=== PATIENT | female | born 1990 | race Asian ===

== ENCOUNTER 2018-08-28 08:50 | Emergency (ER) | payer OTHER ==
[2018-08-28 11:33] LABS: BILIRUBIN,URINE NEGATIVE (NEGATIVE); GLUCOSE, URINE (UA) NEGATIVE (NEGATIVE); KETONES,URINE (UA) NEGATIVE (NEGATIVE); LEUKOCYTE ESTERASE, URINE NEGATIVE (NEGATIVE); NITRITE,URINE NEGATIVE (NEGATIVE); OCCULT BLOOD,URINE SMALL (NEGATIVE); PH,URINE 5.5 PH (5.0-7.5); PROTEIN,URINE NEGATIVE (NEGATIVE); UROBILINOGEN,URINE 0.2 (NORMAL) E.U./dL (NORMAL)
[2018-08-28 11:43] LABS: CLARITY,URINE CLEAR (CLEAR)
[2018-08-28 11:44] LABS: HCG UR QUAL NEGATIVE
[2018-08-28 11:54] LABS: BACTERIA,URINE Rare /HPF (None Seen); RBC,URINE 0-5 /HPF (0-5); SQUAMOUS EPITHELIAL CELL,UR FEW Squamous (<= Few)
--- NOTE | 2018-08-28 13:32 | XRAY Report ---
Reason: cough Procedure Date: 08/28/2018 Accession Number: [id number] / [id number] Procedure: XR - Chest 2 View X-Ray CPT Code: 35541 FULL RESULT: EXAM: CHEST RADIOGRAPHY EXAM DATE: 08/28/2018 01:11 PM. CLINICAL HISTORY: Cough. COMPARISON: None. TECHNIQUE: 2 views. FINDINGS: Lungs/Pleura: Peribronchial thickening No focal opacities evident. No pleural effusion. No pneumothorax. Normal volumes. Mediastinum: Heart and mediastinal contours are unremarkable. Other: None. IMPRESSION: Peribronchial thickening may represent bronchitis RADIA
--- NOTE | 2018-08-28 13:36 | ED Physician Documentation ---
PD HPI URI - Stated complaint Stated Complaint: COUGH - Chief complaint Chief Complaint: Resp - Additional information Additional information: 27-year-old female presents the emergency department with 14 days of cough, nasal congestion and generally feeling unwell. The patient now reports rib pain with coughing. No shortness of breath. Positive for productive sputum. No peripheral edema or unilateral leg swelling.No triggering factors. No relieving factors. No other associated symptoms Review of Systems Constitutional: denies: Fever, Chills Eyes: denies: Discharge Ears: denies: Ear pain Nose: reports: Congestion Throat: denies: Sore throat Respiratory: reports: Cough. denies: Hemoptysis, Wheezing Skin: denies: Rash Musculoskeletal: denies: Neck pain Immunocompromised: denies: Chemotherapy PD PAST MEDICAL HISTORY - Past Medical History Past Medical History: No Other Past Medical History: Cough X 2 wks - afebrile - now it hurts L lat ribs when she coughs - Past Surgical History Past Surgical History: No - Present Medications Home Medications: Ambulatory Orders Medication Instructions Recorded Confirmed Benzonatate [Tessalon Perle] 100 mg PO TID PRN #30 capsule 08/28/18 Doxycycline Hyclate 100 mg PO BID #20 capsule 08/28/18 - Allergies Allergies/Adverse Reactions: Allergies Allergy/AdvReac Type Severity Reaction Status Date / Time No Known Drug Allergies Allergy Verified 08/28/18 09:08 - Social History Does the pt smoke?: No Smoking Status: Never smoker PD ED PE NORMAL - General General: Alert and oriented X 3, No acute distress - HEENT HEENT: Atraumatic, PERRL, EOMI, Ears normal - Neck Neck: Supple, no meningeal sign - Cardiac Cardiac: RRR, Strong equal pulses - Respiratory Respiratory: No respiratory distress, Clear bilaterally - Derm Derm: Normal color - Extremities Extremities: No deformity - Neuro Neuro: Alert and oriented X 3, Normal speech - Psych Psych: Normal affect Results - Vitals Vitals: Vital Signs - 24 hr 08/28/18 08/28/18 09:06 13:45 Temperature 36.6 C 37.0 C Heart Rate 73 77 Respiratory 18 18 Rate Blood Pressure 106/70 108/70 O2 Saturation 98 99 Oxygen O2 Source Room air - Labs Labs: Laboratory Tests 08/28/18 08/28/18 11:25 11:25 Urine Color YELLOW Urine Clarity CLEAR Urine pH 5.5 Ur Specific [place] <=1.005 <=1.005 Urine Protein NEGATIVE Urine Glucose (UA) NEGATIVE Urine Ketones NEGATIVE Urine Occult Blood SMALL H Urine Nitrite NEGATIVE Urine Bilirubin NEGATIVE Urine Urobilinogen 0.2 (NORMAL) Ur Leukocyte Esterase NEGATIVE Urine RBC 0-5 Urine WBC 0-3 Ur Squamous Epith Cells FEW Squamous Urine Bacteria Rare Ur Microscopic Review INDICATED Urine HCG, Qual NEGATIVE PD MEDICAL DECISION MAKING - ED course ED course: The patient's had ongoing symptoms for the past 14 days, given the duration of the symptoms she will be treated as if this is a bacterial etiology for her bronchitis. The patient appears appropriate for discharge and ongoing outpatient management. I discussed warning signs and recommended returning for any worsening or concerns. Departure - Departure Disposition: 01 Home, Self Care Clinical Impression: Bronchitis Condition: Good Instructions: ED Upper Resp Infec Abx Tx Ch Follow-Up: Anita Pollard DNP [Primary Care Provider] - Within 1 week Prescriptions: Benzonatate [Tessalon Perle] 100 mg PO TID PRN #30 capsule PRN Reason: Cough Doxycycline Hyclate 100 mg PO BID #20 capsule Comments: Please return to the emergency department for any worsening or any concerns
[2018-08-28] MEDS ORDERED: DEXAMETHASONE 10 MG/ML VIAL PO STA (13:41)
[2018-08-28] MEDS ORDERED: DOXYCYCLINE 100 MG TABLET PO STA (13:41)
[2018-08-28 13:46] VITALS: BP 108/70
== END 2018-08-28 14:00 | disposition home or self-care (01) ==
LOC: ED 08:50
DX: R05 Cough (principal); J40 Bronchitis, not specified as acute or chronic
CPT/HCPCS: 71046; 81001; 81025; 99283; A9270; 81003

== ENCOUNTER 2018-09-09 22:08 | Emergency (ER) | payer OTHER ==
--- NOTE | 2018-09-10 | ED Physician Documentation ---
PD HPI NVD - Stated complaint Stated Complaint: VOM/CONSTIPATION/DIZZY - Chief complaint Chief Complaint: Abd Pain - History obtained from History obtained from: Patient - History of Present Illness Timing - onset: Today (this morning) Timing - duration: Hours Timing - details: Gradual onset, Constant, Waxing and waning Pain level now: 6 Associated symptoms: Abdominal pain Similar symptoms before: Has not had sx before Recently seen: Not recently seen - Additonal information Additional information: last BM 1 week ago, c/o feeling constipated with increasing cramping lower abdominal pain since this morning, no BM despite urge to defecate. took 3 senna tab and used ducolax suppository without results Review of Systems Constitutional: reports: Reviewed and negative GI: reports: Abdominal Pain, Nausea, Vomiting, Constipation : denies: Dysuria, Frequency, Now EGA PD PAST MEDICAL HISTORY - Past Medical History Past Medical History: No - Past Surgical History Past Surgical History: No - Present Medications Home Medications: Ambulatory Orders Medication Instructions Recorded Confirmed Benzonatate [Tessalon Perle] 100 mg PO TID PRN #30 capsule 08/28/18 Doxycycline Hyclate 100 mg PO BID #20 capsule 08/28/18 - Allergies Allergies/Adverse Reactions: Allergies Allergy/AdvReac Type Severity Reaction Status Date / Time No Known Drug Allergies Allergy Verified 09/09/18 22:18 - Social History Does the pt smoke?: No Smoking Status: Never smoker PD ED PE NORMAL - Vitals Vital signs reviewed: Yes - General General: Alert and oriented X 3, Well developed/nourished, Other (appears uncomfortable) - Cardiac Cardiac: RRR, No murmur - Respiratory Respiratory: No respiratory distress, Clear bilaterally - Abdomen Abdomen: Normal bowel sounds, Soft, Non distended, Other (mild periumbilical tenderness) - Back Back: No CVA TTP Results - Vitals Vitals: Oxygen O2 Source Room air - Labs Labs: Laboratory Tests 09/10/18 09/10/18 04:46 04:46 WBC 24.6 H RBC 5.03 Hgb 14.2 Hct 42.7 MCV 84.8 MCH 28.2 MCHC 33.2 RDW 12.9 Plt Count 304 MPV 7.7 L Neut # (Auto) 23.1 H Lymph # (Auto) 0.5 L Cotton # (Auto) 1.0 Eos # (Auto) 0.0 Baso # (Auto) 0.1 Absolute Nucleated RBC 0.00 Nucleated RBC % 0.0 Sodium 136 Potassium 3.4 L Chloride 100 L Carbon Dioxide 24 Anion Gap 12.0 BUN 25 H Creatinine 0.7 Estimated GFR (MDRD) 99 Glucose 135 H Calcium 9.4 Total Bilirubin 1.1 H AST 36 ALT 44 Alkaline Phosphatase 69 Total Protein 8.1 Albumin 4.8 Globulin 3.3 Albumin/Globulin Ratio 1.5 Lipase 27 - Rads (name of study) abd. 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 xrays then performed and confirm large amount of stool from descending colon to rectum. given fleets enema, magnesium citrate (drank in ED), and soap-suds enema. finally, she had vary large bowel movement with resolution of symptoms Departure - Departure Disposition: 01 Home, Self Care Clinical Impression: Constipation Qualifiers: Constipation type: unspecified constipation type Qualified Code(s): K59.00 - Constipation, unspecified Condition: Good Instructions: ED Constipation Follow-Up: Anita Pollard DNP [Primary Care Provider] - Within 1 week Discharge Date/Time: 09/10/18 05:41
--- NOTE | 2018-09-10 02:18 | XRAY Report ---
Reason: abd. pain Procedure Date: 09/10/2018 Accession Number: [id number] / [id number] Procedure: XR - Abdomen Acute CPT Code: FULL RESULT: EXAM: ABDOMINAL SERIES AND PA CHEST EXAM DATE: 09/10/2018 02:06 AM. CLINICAL HISTORY: Abd. pain. COMPARISON: CHEST 2 VIEW 08/28/2018 1:05 PM. TECHNIQUE: 2 views abdomen and 1 view chest. FINDINGS: CHEST: Lungs/Pleura: No focal opacities. No effusion or pneumothorax. Mediastinum: Within exam limitations, cardiomediastinal contour is normal. ABDOMEN: Bowel Gas Pattern: There is a moderate amount of stool in the rectum, sigmoid colon and lower descending colon. There is mild to moderate gas distention of the proximal descending colon and transverse colon. The small bowel is unremarkable. Free Air: None. Other: None. IMPRESSION: 1. No infiltrates. 2. Moderately large amount of stool in the lower colon including sigmoid and rectum. RADIA
[2018-09-10] MEDS ORDERED: MINERAL OIL ENEMA 133 ML BOTTLE RC STA (02:41)
[2018-09-10] MEDS ORDERED: MAGNESIUM CITRATE 296 ML BOTTLE PO STA (02:41)
[2018-09-10] MEDS ORDERED: SODIUM CHLORIDE 0.9% 1,000 ML IV STA (03:28)
[2018-09-10] MEDS ORDERED: ONDANSETRON 4 MG/2 ML VIAL IVP STA (03:28)
[2018-09-10] MEDS ORDERED: KETOROLAC 30 MG/ML VIAL IVP STA (03:28)
[2018-09-10] MEDS ORDERED: SOAP SUDS ENEMA 1 EACH RC STA (03:35)
[2018-09-10 04:54] LABS: BASOPHILS # (AUTO) 0.1 10^3/uL (0.0-0.1); BASOPHILS % (AUTO) 0.3 %; HGB - HEMOGLOBIN 14.2 g/dL (12.0-16.0); LYMPHOCYTES # (AUTO) 0.5 10^3/uL (1.5-3.5); MEAN CORPUSCULAR HEMOGLOBIN 28.2 pg (27.0-31.0); MEAN CORPUSCULAR HGB CONC 33.2 g/dL (32.0-36.0); MEAN CORPUSCULAR VOLUME 84.8 fL (81.0-99.0); MEAN PLATELET VOLUME 7.7 fL (7.9-10.8); NEUTROPHILS # (AUTO) 23.1 10^3/uL (1.5-6.6); NEUTROPHILS % (AUTO) 93.7 %; PLT - PLATELET COUNT 304 10^3/uL (130-450); RED BLOOD COUNT 5.03 10^6/uL (4.20-5.40); RED CELL DISTRIBUTION WIDTH 12.9 % (12.0-15.0); WHITE BLOOD COUNT 24.6 x10^3/uL (4.8-10.8)
[2018-09-10 05:05] LABS: ALBUMIN 4.8 g/dL (3.2-5.5); ALBUMIN/GLOBULIN RATIO 1.5 (1.0-2.2); BILIRUBIN,TOTAL 1.1 mg/dL (0.2-1.0); CALCIUM 9.4 mg/dL (8.5-10.3); CREATININE 0.7 mg/dL (0.4-1.0); TOTAL PROTEIN 8.1 g/dL (6.7-8.2)
[2018-09-10 05:41] VITALS: BP 110/70
== END 2018-09-10 05:41 | disposition home or self-care (01) ==
LOC: ED 22:08
DX: K59.00 Constipation, unspecified (principal)
CPT/HCPCS: 36415; 74022; 80053; 83690; 85025; 96361; 96374; 96375; 99283; 99284; A9270

== ENCOUNTER 2018-09-18 08:00 | Outpatient (CLI) | payer OTHER ==
[2018-09-18 21:50] LABS: BILIRUBIN,URINE NEGATIVE (NEGATIVE); GLUCOSE, URINE (UA) NEGATIVE (NEGATIVE); KETONES,URINE (UA) TRACE mg/dL (NEGATIVE); LEUKOCYTE ESTERASE, URINE NEGATIVE (NEGATIVE); NITRITE,URINE NEGATIVE (NEGATIVE); OCCULT BLOOD,URINE SMALL (NEGATIVE); PROTEIN,URINE NEGATIVE (NEGATIVE); UROBILINOGEN,URINE 0.2 (NORMAL) E.U./dL (NORMAL)
[2018-09-18 21:54] LABS: CLARITY,URINE HAZY (CLEAR)
[2018-09-18 21:59] LABS: BACTERIA,URINE None Seen /HPF (None Seen); RBC,URINE 0-5 /HPF (0-5); SQUAMOUS EPITHELIAL CELL,UR FEW Squamous (<= Few)
== END 2018-09-18 23:59 | disposition home or self-care (01) ==
LOC: LAB.R 08:00
PROVIDERS: ATTEND Nurse Practitioner
DX: D72.829 Elevated white blood cell count, unspecified (principal)
CPT/HCPCS: 81001; 81003; 87086

== ENCOUNTER 2018-09-19 12:11 | Outpatient (CLI) | payer OTHER ==
[2018-09-19 12:29] LABS: BASOPHILS # (AUTO) 0.1 10^3/uL (0.0-0.1); BASOPHILS % (AUTO) 0.9 %; BILIRUBIN,URINE NEGATIVE (NEGATIVE); EOSINOPHILS # (AUTO) 0.1 10^3/uL (0.0-0.7); EOSINOPHILS % (AUTO) 0.8 %; GLUCOSE, URINE (UA) NEGATIVE (NEGATIVE); HGB - HEMOGLOBIN 13.7 g/dL (12.0-16.0); KETONES,URINE (UA) NEGATIVE (NEGATIVE); LEUKOCYTE ESTERASE, URINE NEGATIVE (NEGATIVE); LYMPHOCYTES # (AUTO) 2.3 10^3/uL (1.5-3.5); LYMPHOCYTES % (AUTO) 32.3 %; MEAN CORPUSCULAR HEMOGLOBIN 28.2 pg (27.0-31.0); MEAN CORPUSCULAR HGB CONC 33.3 g/dL (32.0-36.0); MEAN CORPUSCULAR VOLUME 84.6 fL (81.0-99.0); MEAN PLATELET VOLUME 7.4 fL (7.9-10.8); MONOCYTES # (AUTO) 0.4 10^3/uL (0.0-1.0); MONOCYTES % (AUTO) 5.8 %; NEUTROPHILS # (AUTO) 4.2 10^3/uL (1.5-6.6); NEUTROPHILS % (AUTO) 60.2 %; NITRITE,URINE NEGATIVE (NEGATIVE); OCCULT BLOOD,URINE MODERATE (NEGATIVE); PH,URINE 5.5 PH (5.0-7.5); PLT - PLATELET COUNT 375 10^3/uL (130-450); PROTEIN,URINE NEGATIVE (NEGATIVE); RED BLOOD COUNT 4.84 10^6/uL (4.20-5.40); RED CELL DISTRIBUTION WIDTH 13.4 % (12.0-15.0); UROBILINOGEN,URINE 0.2 (NORMAL) E.U./dL (NORMAL)
[2018-09-19 12:38] LABS: CLARITY,URINE CLEAR (CLEAR)
[2018-09-19 12:39] LABS: BACTERIA,URINE Rare /HPF (None Seen); MUCUS,URINE Few Strands; RBC,URINE 0-5 /HPF (0-5); SQUAMOUS EPITHELIAL CELL,UR RARE Squamous (<= Few)
[2018-09-19 12:52] LABS: ALBUMIN 4.6 g/dL (3.2-5.5); ALBUMIN/GLOBULIN RATIO 1.4 (1.0-2.2); BILIRUBIN,TOTAL 0.5 mg/dL (0.2-1.0); CALCIUM 9.3 mg/dL (8.5-10.3); CREATININE 0.5 mg/dL (0.4-1.0); TOTAL PROTEIN 7.8 g/dL (6.7-8.2)
== END 2018-09-19 12:12 | disposition home or self-care (01) ==
LOC: LAB 12:11
PROVIDERS: ATTEND Nurse Practitioner
DX: E87.6 Hypokalemia (principal); D72.829 Elevated white blood cell count, unspecified
CPT/HCPCS: 36415; 80053; 81001; 81003; 85025; 87086

== ENCOUNTER 2018-09-29 08:00 | Outpatient (CLI) | payer OTHER | END 2018-09-29 23:59 | disposition home or self-care (01) | LOC: LAB.N 08:00 | PROVIDERS: ATTEND Nurse Practitioner | DX: E87.6 Hypokalemia (principal) | CPT/HCPCS: 36415; 84132 ==

== ENCOUNTER 2019-01-14 09:49 | Emergency (ER) | payer OTHER ==
[2019-01-14 09:55] VITALS: BP 119/79
--- NOTE | 2019-01-14 10:14 | ED Physician Documentation ---
History of Present Illness - Stated complaint Stated Complaint: L ANKLE INJ - Chief complaint Chief Complaint: Trauma Ext - Additonal information Additional information: This is a 28-year-old female who presents with left foot pain. Patient was kicking a soccer ball around in the yard yesterday with her daughter when she tripped and fell landing on her left foot. She is able to walk afterwards but she had pain in her left foot which was moderate and worse with movement and pressure. She denies pain in her lower leg toes or elsewhere in her body. 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 - Present Medications Home Medications: Ambulatory Orders Medication Instructions Recorded Confirmed Benzonatate [Tessalon Perle] 100 mg PO TID PRN #30 capsule 08/28/18 RX: Doxycycline Hyclate 100 mg PO BID #20 capsule 08/28/18 Ibuprofen [Motrin] 600 mg PO Q6H PRN #30 tablet 01/14/19 RX: Acetaminophen 650 mg PO Q6HR #30 tablet 01/14/19 - Allergies Allergies/Adverse Reactions: Allergies Allergy/AdvReac Type Severity Reaction Status Date / Time No Known Drug Allergies Allergy Verified 01/14/19 09:54 - Social History Does the pt smoke?: No Smoking Status: Never smoker Does the pt drink ETOH?: No Does the pt have substance abuse?: No - Immunizations Immunizations are current?: Yes PD ED PE NORMAL - Vitals Vital signs reviewed: Yes - General General: Alert and oriented X 3, No acute distress - Cardiac Cardiac: RRR - Respiratory Respiratory: No respiratory distress - Abdomen Abdomen: Non distended - Derm Derm: Warm and dry - Extremities Extremities: Other (Over the dorsal lateral left foot there is a 3 cm x 2 cm area of ecchymosis and mild edema which is tender to palpation. There is no tenderness over the lateral medial malleolus, or over the digits of the foot. Tibia and fibula are nontender. Patient is able to bear weight on the foot without issue. Sensation to light touch intact over the entire foot. Capillary refill is brisk on the toes, and patient has full range of motion of her ankle with normal strength) - Neuro Neuro: Alert and oriented X 3 - Psych Psych: Normal mood, Normal affect Results - Vitals Vitals: Vital Signs - 24 hr 01/14/19 09:52 Temperature 37.3 C Heart Rate 67 Respiratory 15 Rate Blood Pressure 119/79 O2 Saturation 99 Oxygen O2 Source Room air - Rads (name of study) XR foot Radiology: Prelim report reviewed PD MEDICAL DECISION MAKING - ED course Complexity details: considered differential (Sprain, strain, fracture, contusion) ED course: Patient has a neurovascularly intact extremity with a small area of ecchymosis however she is able to bear weight on her foot. X-ray does not show any signs of acute osseous abnormal body, I think is most likely she is suffered a contusion vs. sprain. Discussed supportive care with rest ice compression elevation, as well as [id number] analgesics. I recommended follow-up with her primary care provider in 1 week if she has persistent or worsening pain, also discussed return precautions for the emergency department. Patient was discharged home. Departure - Departure Disposition: , Self Care Clinical Impression: Injury of foot Qualifiers: Encounter type: initial encounter Laterality: left Qualified Code(s): S99.922A - Unspecified injury of left foot, initial encounter Condition: Good Instructions: ED Contusion Lower Ext Follow-Up: Your,PCP [Other] (in 1 week if having continued pain) Prescriptions: RX: Acetaminophen 650 mg PO Q6HR #30 tablet Ibuprofen [Motrin] 600 mg PO Q6H PRN #30 tablet PRN Reason: PAIN &/OR FEVER Comments: You received today for foot pain. I do not see signs of a fracture on your x- ray. Rest, ice, and elevate your foot. Follow-up with your primary care provider if you are having continued pain in 1 week, you may need to repeat x- ray at this time if you are having significant pain. Discharge Date/Time: 01/14/19 11:28
--- NOTE | 2019-01-14 11:03 | XRAY Report ---
Reason: fall Procedure Date: 01/14/2019 Accession Number: [id number] / [id number] Procedure: XR - Foot 3 View LT CPT Code: FULL RESULT: EXAM: LEFT FOOT RADIOGRAPHY EXAM DATE: 01/14/2019 10:31 AM. CLINICAL HISTORY: Lateral foot pain and swelling post injury. COMPARISON: None. TECHNIQUE: 3 views. FINDINGS: Bones: No fractures or bone lesions. Joints: No significant degenerative process seen. No subluxations. Soft Tissues: There is mild distal mid plantar foot soft tissue swelling. IMPRESSION: Negative for fracture or subluxation in the left foot radiography. RADIA
== END 2019-01-14 11:28 | disposition home or self-care (01) ==
LOC: ED 09:49
DX: S99.922A Unspecified injury of left foot, initial encounter (principal); W01.0XXA Fall on same level from slipping, tripping and stumbling without subsequent striking against object, initial encounter; Y93.66 Activity, soccer; Y92.007 Garden or yard of unspecified non-institutional (private) residence as the place of occurrence of the external cause
CPT/HCPCS: 99282; 99283

== ENCOUNTER 2019-06-04 09:55 | Emergency (ER) | payer OTHER ==
--- NOTE | 2019-06-04 11:22 | XRAY Report ---
Reason: cough Procedure Date: 06/04/2019 Accession Number: [id number] / [id number] Procedure: XR - Chest 2 View X-Ray CPT Code: 90003 Final Report FULL RESULT: EXAM: CHEST RADIOGRAPHY 2 VIEWS EXAM DATE: 06/04/2019. CLINICAL HISTORY: Cough. COMPARISON: PA chest done 09/10/2018. TECHNIQUE: PA and lateral views. FINDINGS: Lungs/Pleura: Normal vasculature. The lungs are clear. No pleural fluid or pneumothorax. Mediastinum: Normal cardiac and mediastinal contours. Bones: Mild pectus excavatum. Minimal scoliosis. IMPRESSION: No radiographic cardiopulmonary abnormality. RADIA
[2019-06-04 12:39] VITALS: BP 117/83
--- NOTE | 2019-06-04 12:45 | ED Physician Documentation ---
History of Present Illness - Stated complaint Stated Complaint: FEVER, COUGH X2 WEEKS - Chief complaint Chief Complaint: Resp - History obtained from History obtained from: Patient - History of Present Illness Timing: How many weeks ago (2) Pain level max: 5 Pain level now: 4 Improved by: Nothing Worsened by: Nothing - Additonal information Additional information: 28-year-old female, states she has had intermittent fevers and coughing for 2 weeks. Feels worse today. Did receive her flu vaccination this year. She is not , breast-feeding or trying to become . No vomiting. No diarrhea. 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 - Present Medications Home Medications: Ambulatory Orders Medication Instructions Recorded Confirmed Benzonatate [Tessalon Perle] 100 mg PO TID PRN #30 capsule 08/28/18 Doxycycline Hyclate 100 mg PO BID #20 capsule 08/28/18 Acetaminophen 650 mg PO Q6HR #30 tablet 01/14/19 Ibuprofen [Motrin] 600 mg PO Q6H PRN #30 tablet 01/14/19 Benzonatate [Tessalon Perle] 100 - 200 mg PO TID PRN #30 capsule 06/04/19 - Allergies Allergies/Adverse Reactions: Allergies Allergy/AdvReac Type Severity Reaction Status Date / Time No Known Drug Allergies Allergy Verified 06/04/19 10:14 - Social History Does the pt smoke?: No Smoking Status: Never smoker Does the pt drink ETOH?: No Does the pt have substance abuse?: No - Immunizations Immunizations are current?: Yes PD ED PE NORMAL - Vitals Vital signs reviewed: Yes - General General: Alert and oriented X 3, No acute distress, Well developed/nourished - HEENT HEENT: PERRL, Ears normal, Moist mucous membranes, Pharynx benign, Other (clear rhinorrhea) - Neck Neck: Supple, no meningeal sign - Cardiac Cardiac: RRR, Strong equal pulses - Respiratory Respiratory: No respiratory distress, Clear bilaterally - Abdomen Abdomen: Soft, Non tender, Non distended - Derm Derm: Warm and dry, No rash - Neuro Neuro: Alert and oriented X 3 - Psych Psych: Normal mood, Normal affect Results - Vitals Vitals: Vital Signs - 24 hr 06/04/19 06/04/19 06/04/19 10:14 12:14 12:37 Temperature 37.7 C H 38.2 C H Heart Rate 98 100 Respiratory 17 22 Rate Blood Pressure 121/82 H 117/83 H O2 Saturation 99 97 Oxygen O2 Source Room air - Labs Labs: Laboratory Tests 06/04/19 10:19 Influenza A (Rapid) Negative Influenza B (Rapid) POSITIVE H - Rads (name of study) cxr Radiology: Prelim report reviewed, EMP read contemporaneously, See rad report (No radiographic cardiopulmonary abnormality. ) PD MEDICAL DECISION MAKING - ED course Complexity details: reviewed results, considered differential, d/w patient ED course: Patient with influenza B. She is out of the window for treatment. We will provide supportive care instead. Patient is well-appearing, nontoxic. No hypoxia. No respiratory distress. Patient counseled regarding signs and symptoms for which I believe and urgent re-evaluation would be necessary. Patient with good understanding of and agreement to plan and is comfortable going home at this time This document was made in part using voice recognition software. While efforts are made to proofread this document, sound alike and grammatical errors may occur. Departure - Departure Disposition: 01 Home, Self Care Clinical Impression: Influenza B Condition: Good Instructions: ED Flu Follow-Up: Olena Little, IMMIGRATION JUDGE [Primary Care Provider] - (If not better in 1 week) Prescriptions: Benzonatate [Tessalon Perle] 100 - 200 mg PO TID PRN #30 capsule PRN Reason: Cough Comments: You have tested positive for influenza B today. This should improve over the next few days. Return if you worsen. Forms: Activity restrictions
== END 2019-06-04 12:54 | disposition home or self-care (01) ==
LOC: ED 09:55
DX: J10.1 Influenza due to other identified influenza virus with other respiratory manifestations (principal)
CPT/HCPCS: 71046; 87275; 87276; 99284

== ENCOUNTER 2020-08-06 07:00 | Outpatient (CLI) | payer OTHER ==
[2020-08-06 16:45] LABS: MUDS CUTOFF CONCENTRATIONS CUTOFF CONC BELOW:
[2020-08-06 16:48] LABS: BILIRUBIN,URINE NEGATIVE (NEGATIVE); GLUCOSE, URINE (UA) NEGATIVE (NEGATIVE); KETONES,URINE (UA) NEGATIVE (NEGATIVE); LEUKOCYTE ESTERASE, URINE NEGATIVE (NEGATIVE); NITRITE,URINE NEGATIVE (NEGATIVE); OCCULT BLOOD,URINE TRACE-INTA (NEGATIVE); PROTEIN,URINE NEGATIVE (NEGATIVE); UROBILINOGEN,URINE 0.2 (NORMAL) E.U./dL (NORMAL)
[2020-08-06 16:49] LABS: CLARITY,URINE CLOUDY (CLEAR)
[2020-08-06 17:01] LABS: RBC,URINE 0-5 /HPF (0-5); SQUAMOUS EPITHELIAL CELL,UR RARE Squamous (<= Few)
[2020-08-06 17:02] LABS: AMORPHOUS SEDIMENT,UR Marked /LPF; BACTERIA,URINE Rare /HPF (None Seen)
[2020-08-06 17:03] LABS: AMPHETAMINE SCREEN,URINE NEGATIVE (NEGATIVE); BENZODIAZEPINES SCREEN, URINE NEGATIVE (NEGATIVE); COCAINE SCREEN URINE NEGATIVE (NEGATIVE); METHADONE SCREEN, URINE NEGATIVE (NEGATIVE); METHAMPHETAMINES SCREEN, URINE NEGATIVE (NEGATIVE); OPIATE SCREEN, URINE NEGATIVE (NEGATIVE); OXYCODONE SCREEN, URINE NEGATIVE (NEGATIVE); PROPOXYPHENE SCREEN, URINE NEGATIVE (NEGATIVE); TRICYCLIC ANTIDEPRESSANT,URINE NEGATIVE (NEGATIVE)
== END 2020-08-06 23:59 | disposition home or self-care (01) ==
LOC: LAB.R 07:00
PROVIDERS: ATTEND Nurse Practitioner Obstetrics & Gynecology
DX: Z34.90 Encounter for supervision of normal pregnancy, unspecified, unspecified trimester (principal)
CPT/HCPCS: 80306; 81001; 87086

== ENCOUNTER 2020-08-18 08:00 | Outpatient (CLI) | payer OTHER ==
[2020-08-18 12:01] LABS: BASOPHILS # (AUTO) 0.1 10^3/uL (0.0-0.1); BASOPHILS % (AUTO) 0.5 %; EOSINOPHILS # (AUTO) 0.1 10^3/uL (0.0-0.7); HCT - HEMATOCRIT 44.7 % (37.0-47.0); HGB - HEMOGLOBIN 14.9 g/dL (12.0-16.0); LYMPHOCYTES # (AUTO) 2.2 10^3/uL (1.5-3.5); LYMPHOCYTES % (AUTO) 21.7 %; MEAN CORPUSCULAR HEMOGLOBIN 28.8 pg (27.0-31.0); MEAN CORPUSCULAR HGB CONC 33.3 g/dL (32.0-36.0); MEAN CORPUSCULAR VOLUME 86.5 fL (81.0-99.0); MONOCYTES # (AUTO) 0.6 10^3/uL (0.0-1.0); MONOCYTES % (AUTO) 5.9 %; NEUTROPHILS # (AUTO) 7.3 10^3/uL (1.5-6.6); NEUTROPHILS % (AUTO) 70.5 %; PLT - PLATELET COUNT 361 10^3/uL (130-450); RED BLOOD COUNT 5.17 10^6/uL (4.20-5.40); RED CELL DISTRIBUTION WIDTH 13.1 % (12.0-15.0); WHITE BLOOD COUNT 10.3 x10^3/uL (4.8-10.8)
[2020-08-18 12:05] LABS: ALBUMIN 4.6 g/dL (3.2-5.5); ALBUMIN/GLOBULIN RATIO 1.4 (1.0-2.2); ALKALINE PHOSPHATASE 41 IU/L (42-121); ALT ALANINE AMINOTRANSFERASE 16 IU/L (10-60); AST ASPARTATE AMINOTRANSFERASE 20 IU/L (10-42); BILIRUBIN,TOTAL 0.7 mg/dL (0.2-1.0); BUN - BLOOD UREA NITROGEN 10 mg/dL (6-20); CALCIUM 9.7 mg/dL (8.5-10.3); CARBON DIOXIDE - CO2 23 mmol/L (21-32); CHLORIDE 102 mmol/L (101-111); CHOL/HDL RATIO 2.8 (<4.4); CHOLESTEROL 173 mg/dL; CREATININE 0.4 mg/dL (0.4-1.0); GFR - MDRD 186 (>89); GLUCOSE 85 mg/dL (70-100); HDL CHOLESTEROL 61 mg/dL; LDL CHOLESTEROL,CALCULATED 90 mg/dL; LDL/HDL RATIO 1.5 (<4.4); POTASSIUM 3.7 mmol/L (3.5-5.0); SODIUM 134 mmol/L (135-145); TRIGLYCERIDES 109 mg/dL; VLDL CHOLESTEROL 22 mg/dL
[2020-08-18 12:09] LABS: THYROID STIMULATING HORMONE 2.56 uIU/mL (0.34-5.60)
== END 2020-08-18 23:59 | disposition home or self-care (01) ==
LOC: LAB.WCP 08:00
PROVIDERS: ATTEND Nurse Practitioner Family
DX: Z00.00 Encounter for general adult medical examination without abnormal findings (principal)
CPT/HCPCS: 36415; 80050; 80061; 83721

== ENCOUNTER 2020-08-28 14:44 | Outpatient (CLI) | payer OTHER ==
--- NOTE | 2020-08-28 16:02 | Ultrasound Report ---
PROCEDURE: OB First Trimester INDICATIONS: SUPERVISION OF NORMAL OUTSIDE/PRIOR DATING DATA: Last menstrual period (LMP): 06/20/2020. LMP-based estimated date of delivery (JOANN): 03/27/2021. First dating scan (date and location): 08/28/2020. Estimated date of delivery (JOANN) from first dating scan: 03/24/2021. TECHNIQUE: Real-time scanning was performed of the fetus and maternal pelvic organs, with image documentation. COMPARISON: None FINDINGS: Embryo: Single live intrauterine is present with crown-rump length measuring 3.4 cm coarse 9-10 weeks 2 days. heart rate is present at 160 bpm. Cervix is closed. Measurement variability in dating: +/- 4 weeks by LMP, +/- 7 days by mean sac diameter (use before 6 weeks gestation if crown-rump length not able to be measured), +/- 5 days by crown-rump length (6-12 weeks gestation). Maternal organs: Left ovary is not visualized. Right ovary is unremarkable. Left adnexal region is wi thin normal limits. IMPRESSION: 1. Single imaging appearances with ultrasound gestational age of 10 weeks 2 days corresponding to ult rasound JOANN of 03/24/2021. 2. Recommend follow-up imaging at 20-22 weeks for dates and anatomy. Reviewed by: Maren De León MD on 08/28/2020 4:01 PM PDT Approved by: Maren De León MD on 08/28/2020 4:01 PM PDT Station ID: [id number]
== END 2020-08-28 14:45 | disposition home or self-care (01) ==
LOC: DI 14:44
PROVIDERS: ATTEND Nurse Practitioner Obstetrics & Gynecology
DX: Z34.91 Encounter for supervision of normal pregnancy, unspecified, first trimester (principal)

== ENCOUNTER 2020-09-04 07:00 | Outpatient (CLI) | payer OTHER ==
[2020-09-05 20:53] LABS: CHLAMYDIA TRACHOMATIS DNA NEGATIVE (NEGATIVE); NEISSERIA GONORRHOEAE DNA NEGATIVE (NEGATIVE); TRICHOMONAS VAGINALIS DNA NEGATIVE (NEGATIVE)
== END 2020-09-04 23:59 | disposition home or self-care (01) ==
LOC: LAB.R 07:00
PROVIDERS: ATTEND Obstetrics & Gynecology
DX: Z11.3 Encounter for screening for infections with a predominantly sexual mode of transmission (principal)
CPT/HCPCS: 87491; 87591; 87661

== ENCOUNTER 2020-09-08 09:31 | Outpatient (CLI) | payer OTHER ==
[2020-09-08 12:02] LABS: BASOPHILS % (AUTO) 0.4 %; EOSINOPHILS # (AUTO) 0.1 10^3/uL (0.0-0.7); HGB - HEMOGLOBIN 13.5 g/dL (12.0-16.0); LYMPHOCYTES # (AUTO) 1.8 10^3/uL (1.5-3.5); LYMPHOCYTES % (AUTO) 17.4 %; MEAN CORPUSCULAR HEMOGLOBIN 28.6 pg (27.0-31.0); MEAN CORPUSCULAR HGB CONC 33.8 g/dL (32.0-36.0); MEAN CORPUSCULAR VOLUME 84.7 fL (81.0-99.0); MEAN PLATELET VOLUME 10.2 fL (7.9-10.8); MONOCYTES # (AUTO) 0.5 10^3/uL (0.0-1.0); MONOCYTES % (AUTO) 5.2 %; NEUTROPHILS # (AUTO) 7.7 10^3/uL (1.5-6.6); NEUTROPHILS % (AUTO) 75.6 %; PLT - PLATELET COUNT 326 10^3/uL (130-450); RED BLOOD COUNT 4.72 10^6/uL (4.20-5.40); RED CELL DISTRIBUTION WIDTH 12.9 % (12.0-15.0); WHITE BLOOD COUNT 10.1 x10^3/uL (4.8-10.8)
[2020-09-09 12:46] LABS: HEPATITIS B SURFACE ANTIGEN NON-REACTIVE (NON-REACTIVE); HEPATITIS C ANTIBODY NON-REACTIVE (NON-REACTIVE)
[2020-09-09 14:21] LABS: HIV AG/AB 4TH GEN NON-REACTIVE (NON-REACTIVE)
== END 2020-09-08 09:32 | disposition home or self-care (01) ==
LOC: LAB.N 09:31
PROVIDERS: ATTEND Obstetrics & Gynecology
DX: Z36.89 Encounter for other specified antenatal screening (principal)
CPT/HCPCS: 36415; 85025; 86592; 86762; 86787; 86803; 86850; 86900; 86901; 87340; 87389

== ENCOUNTER 2020-10-23 08:00 | Outpatient (CLI) | payer OTHER ==
[2020-10-27 11:22] LABS: AGE RISK DOWN SYNDROME 1 IN 547; CALC'D GESTATIONAL AGE 17.9 weeks; CIGARETTE SMOKER? NOT GIVEN; DONOR AGE: EGG RETRIEVAL NOT GIVEN; DONOR EGG NO; ESTRIOL MOM 0.94; HX OF NEURAL TUBE DEFECTS NO; INHIBIN A MOM 0.78; INSULIN DEPEND DIABETIC NO; MATERNAL WEIGHT 118 lbs; MSS DOWN SYNDROME RISK 1 IN 4566; MSS3 TRISOMY 18 RISK <1 IN 5000; NUMBER OF FETUSES 1; PREV PREGNANCY DOWN SYND NO; RISK FOR ONTD <1 IN 5000
== END 2020-10-23 23:59 | disposition home or self-care (01) ==
LOC: LAB.WCP 08:00
PROVIDERS: ATTEND Obstetrics & Gynecology
DX: Z34.90 Encounter for supervision of normal pregnancy, unspecified, unspecified trimester (principal)
CPT/HCPCS: 36415; 81511

== ENCOUNTER 2020-11-07 09:00 | Outpatient (CLI) | payer OTHER ==
--- NOTE | 2020-11-07 17:22 | Ultrasound Report ---
PROCEDURE: OB Detailed Eval INDICATIONS: SUPERVISION OF NORMAL OUTSIDE/PRIOR DATING DATA: Last menstrual period (LMP): 06/20/2020. LMP-based estimated date of delivery (JOANN): 03/27/2021. First dating scan (date and location): 08/28/2020. Estimated date of delivery (JOANN) from first dating scan: 03/24/2021. The below data below was generated using the 08/28/2020 JOANN of 03/24/2021 TECHNIQUE: Real-time scanning was performed of the fetus, with image documentation and biometric measurements. Endovaginal scanning: No COMPARISON: First trimester OB ultrasound dated 08/28/2020 FINDINGS: General: A single living intrauterine gestation is present. Presentation: Variable Placenta: Placental position is posterior, without previa. Amniotic fluid index: 13.5 cm, normal for gestational age. heart rate: 129 beats per minute. Maternal cervical canal: 4.0 cm long; normal length is 2.5 cm or more. biometrics: Biparietal diameter: 20 weeks 5 days Head circumference: 19 weeks 5 days Abdominal circumference: 20 weeks 5 days Femur length: 19 weeks 0 days Estimated gestational age from initial scan: 20 weeks 3 days Composite gestational age from present scan: 20 weeks 0 days Estimated weight and percentile: 32 2 g; 21st percentile Measurement variability in biometric dating: +/- 10 days from 12-20 weeks gestation, +/- 2 weeks from 20-30 weeks gestation, +/- 3 weeks at 30 weeks gestation or later. Anatomic survey: Neuro: Ventricles are normal at less than 10 mm. Cisterna magna is normal at 3-11 mm. Cerebellum i s normal in size and morphology. Nuchal skin fold: Normal at less than 6 mm between 14 and 20 weeks gestational age. Face: Nose and lips, facial profile are normal. Spine: No evidence for spina bifida. Heart: 4-chambered heart is present, with normal ventricular outflow tracts. Diaphragm: Diaphragm is intact. Stomach: Left-sided stomach is present. Kidneys: No hydronephrosis. Normal is less than 5 mm in 2nd trimester, less than 7 mm in 3rd trimester. Cord: 3 vessel cord has orthotopic insertion. Bladder: Normal in size. Extremities: All 4 extremities are visualized. IMPRESSION: 1. Single living IUP redemonstrated and interval growth is normal. 2. Normal anatomic survey. Reviewed by: CLINTON Pace on 11/07/2020 5:20 PM PDT Approved by: Maren De León MD on 11/07/2020 5:20 PM PDT Station ID: [id number]
== END 2020-11-07 23:59 | disposition home or self-care (01) ==
LOC: DI 09:00
PROVIDERS: ATTEND Obstetrics & Gynecology
DX: Z34.90 Encounter for supervision of normal pregnancy, unspecified, unspecified trimester (principal); Z36.89 Encounter for other specified antenatal screening

== ENCOUNTER 2020-11-18 08:00 | Outpatient (CLI) | payer OTHER | END 2020-11-18 23:59 | disposition home or self-care (01) | LOC: LAB.WCP 08:00 | PROVIDERS: ATTEND Obstetrics & Gynecology | DX: Z34.90 Encounter for supervision of normal pregnancy, unspecified, unspecified trimester (principal) | CPT/HCPCS: 36415; 82950 ==

== ENCOUNTER 2020-12-29 08:00 | Outpatient (CLI) | payer OTHER ==
[2020-12-29 15:14] LABS: BACTERIAL VAGINOSIS DNA NEGATIVE (NEGATIVE); CANDIDA GLABRATA DNA NEGATIVE (NEGATIVE); CANDIDA GROUP DNA NEGATIVE (NEGATIVE); CANDIDA KRUSEI DNA NEGATIVE (NEGATIVE); TRICHOMONAS VAGINALIS DNA NEGATIVE (NEGATIVE)
== END 2020-12-29 23:59 | disposition home or self-care (01) ==
LOC: LAB.WC 08:00
PROVIDERS: ATTEND Obstetrics & Gynecology
DX: O60.12X0 Preterm labor second trimester with preterm delivery second trimester, not applicable or unspecified (principal)
CPT/HCPCS: 36415; 82731; 87661; 87801

== ENCOUNTER 2020-12-31 21:49 | Outpatient (CLI) | payer OTHER ==
[2020-12-31 22:16] VITALS: BP 111/70
--- NOTE | 2020-12-31 22:45 | PROVIDER PROGRESS NOTE ---
- HPI Chief Complaint: Other (Upper abdominal pain and occasionally left mid abdominal pain. Patient reports good movement. Patient has occasional back pain. Patient denies vaginal bleeding or SROM. Patient denies vomiting. Patient had nausea last night. Patient had BM at 3:30 am.) Current : Vital Signs Temperature 99.0 F 12/31/20 22:13 Heart Rate 77 12/31/20 22:13 Respiratory Rate 18 12/31/20 22:13 Blood Pressure 111/70 12/31/20 22:13 O2 Saturation 97 12/31/20 22:13 Temperature 99.0 F 12/31/20 22:13 Heart Rate 77 12/31/20 22:13 Respiratory Rate 18 12/31/20 22:13 Blood Pressure 111/70 12/31/20 22:13 O2 Saturation 97 12/31/20 22:13 - Exam General: Lying on stretcher in no acute distress. Chest: Clear to auscultation. Good breath sounds in all garcia. Abdomen: Soft, non-tender to palpation at this time. Bowel sounds in all quadrants. Vertical skin incision from prior section. Extremities: No pedal or pretibial edema. Monitor: Baseline 140's, appropriate 10X10 Accelerations present. Moderate variability is present. Some irritability is present, not consistent V/V: No lesions, no erythema, no discharge. Collected FFN at posterior sulcus. CX: No lesions, no erythmea. Long/Thick/Closed. - Procedures Diagnosis/Indication for NST: Other (FFN and Cervical length performed.) - Plan Plan: P-FFN is negative. Cervical length averaged over 3 cm. Patient given labor precautions. Tylenol for pain prn for back. Stay well hydrated. support belt. Follow-up in clinic as scheduled. Call for any problems.
[2020-12-31 23:23] LABS: BILIRUBIN,URINE NEGATIVE (NEGATIVE); GLUCOSE, URINE (UA) NEGATIVE (NEGATIVE); KETONES,URINE (UA) NEGATIVE (NEGATIVE); LEUKOCYTE ESTERASE, URINE NEGATIVE (NEGATIVE); NITRITE,URINE NEGATIVE (NEGATIVE); OCCULT BLOOD,URINE MODERATE (NEGATIVE); PROTEIN,URINE NEGATIVE (NEGATIVE); UROBILINOGEN,URINE 0.2 (NORMAL) E.U./dL (NORMAL)
[2020-12-31 23:33] LABS: BACTERIA,URINE Rare /HPF (None Seen); CLARITY,URINE CLEAR (CLEAR); RBC,URINE 0-5 /HPF (0-5); SQUAMOUS EPITHELIAL CELL,UR FEW Squamous (<= Few); WBC,URINE 0-3 /HPF (0-5)
[2021-01-01 01:54] LABS: CHLAMYDIA TRACHOMATIS DNA NEGATIVE (NEGATIVE); NEISSERIA GONORRHOEAE DNA NEGATIVE (NEGATIVE); TRICHOMONAS VAGINALIS DNA NEGATIVE (NEGATIVE)
--- NOTE | 2021-01-01 07:59 | Ultrasound Report ---
PROCEDURE: OB Transvaginal INDICATIONS: upper abdominal pain x 24hrs OUTSIDE/PRIOR DATING DATA: Last menstrual period (LMP): 06/20/2020. LMP-based estimated date of delivery (JOANN): 03/27/2021. First dating scan (date and location): 08/28/2020. Estimated date of delivery (JOANN) from first dating scan: 03/24/2021. The below data below was generated using the ultrasound JOANN of 03/24/2021 TECHNIQUE: Real-time scanning was performed of the fetus, with image documentation and biometric measurements. Endovaginal scanning: Yes COMPARISON: None. FINDINGS: Living third trimester intrauterine . Close cervix measuring 3.4 cm. General: A single living intrauterine gestation is present. Presentation: Not evaluated. Placenta: Placental position is posterior, without previa. Amniotic fluid index: Not measured heart rate: 140 beats per minute. Maternal cervical canal: Closed, 3.4 cm long; normal length is 2.5 cm or more. IMPRESSION: This was a limited ultrasound, at the request of the referring clinician, simply to demonstrate the s tatus of the cervix, which is closed, measuring 3.4 cm. A living third trimester intrauterine pregnan cy is noted. A preliminary report with the above findings was provided at the time of the study by [facility]. Reviewed by: Beto Shelton MD on 01/01/2021 7:58 AM PDT Approved by: Beto Shelton MD on 01/01/2021 7:58 AM PDT Station ID: [id number]
== END 2020-12-31 23:20 | disposition home or self-care (01) ==
LOC: WFO 21:49 → FBP 21:51 → WFO 23:20
PROVIDERS: ATTEND Obstetrics & Gynecology
DX: O99.891 Other specified diseases and conditions complicating pregnancy (principal); R10.11 Right upper quadrant pain; Z3A.00 Weeks of gestation of pregnancy not specified
CPT/HCPCS: 81001; 81003; 82731; 87086; 87491; 87591; 87661; 87801; 99214; 99215

== ENCOUNTER 2021-01-07 08:00 | Outpatient (CLI) | payer OTHER ==
[2021-01-07 11:56] LABS: BASOPHILS % (AUTO) 0.4 %; EOSINOPHILS # (AUTO) 0.1 10^3/uL (0.0-0.7); EOSINOPHILS % (AUTO) 1.1 %; HCT - HEMATOCRIT 39.3 % (37.0-47.0); HGB - HEMOGLOBIN 13.1 g/dL (12.0-16.0); LYMPHOCYTES # (AUTO) 1.8 10^3/uL (1.5-3.5); LYMPHOCYTES % (AUTO) 15.5 %; MEAN CORPUSCULAR HEMOGLOBIN 29.8 pg (27.0-31.0); MEAN CORPUSCULAR HGB CONC 33.3 g/dL (32.0-36.0); MEAN CORPUSCULAR VOLUME 89.3 fL (81.0-99.0); MEAN PLATELET VOLUME 9.7 fL (7.9-10.8); MONOCYTES # (AUTO) 0.7 10^3/uL (0.0-1.0); MONOCYTES % (AUTO) 6.3 %; NEUTROPHILS # (AUTO) 8.6 10^3/uL (1.5-6.6); NEUTROPHILS % (AUTO) 75.3 %; PLT - PLATELET COUNT 307 10^3/uL (130-450); RED CELL DISTRIBUTION WIDTH 13.2 % (12.0-15.0); WHITE BLOOD COUNT 11.4 x10^3/uL (4.8-10.8)
== END 2021-01-07 23:59 | disposition home or self-care (01) ==
LOC: LAB.WCP 08:00
PROVIDERS: ATTEND Obstetrics & Gynecology
DX: Z34.90 Encounter for supervision of normal pregnancy, unspecified, unspecified trimester (principal); Z36.89 Encounter for other specified antenatal screening
CPT/HCPCS: 36415; 85025

== ENCOUNTER 2021-01-08 08:00 | Outpatient (CLI) | payer OTHER | END 2021-01-08 23:59 | disposition home or self-care (01) | LOC: LAB.WCP 08:00 | PROVIDERS: ATTEND Obstetrics & Gynecology | DX: Z34.90 Encounter for supervision of normal pregnancy, unspecified, unspecified trimester (principal); Z36.89 Encounter for other specified antenatal screening | CPT/HCPCS: 36415; 82950 ==

== ENCOUNTER 2021-03-04 08:00 | Outpatient (CLI) | payer OTHER | END 2021-03-04 23:59 | disposition home or self-care (01) | LOC: LAB.WC 08:00 | PROVIDERS: ATTEND Obstetrics & Gynecology | DX: Z36.85 Encounter for antenatal screening for Streptococcus B (principal) | CPT/HCPCS: 87797 ==

== ENCOUNTER 2021-03-04 21:19 | Inpatient (IN) | payer OTHER ==
[2021-03-04] MEDS ORDERED: LACTATED RINGERS 1,000 ML IV ONE (22:14)
--- NOTE | 2021-03-05 00:18 | HISTORY & PHYSICAL EXAMINATION ---
Admit History - : 2 Parity: 1 Smoking Status: Never smoker - Other Maternal History Other Maternal History: ID: Patient is a 30 yo at 36+6 wga here with contractions and abdomen painful to touch. HPI: Patient was seen in clinic today. She reported have crmaping pelvic pain over the prior 24 hours. She presented to L&D this evening raitng pain 5/10. Contractions were Q4 minutes. She was given an IV fluid bolus and observed over an hour. Contractions slowed but pain has increased to 8/10. Patient is having emesis and rigors. Unable to sit upright 2/2 pain. No bleeding. No LOF. No changge in SVE over 1 hour. 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 A handwritten op note suggests that she had a low transverse incision, not clear if double layer closure was present. Patient has a vertical abdominal incision Has signed [facility] tubal consents, declines tubal at present. Desires wound revision if time allows. PNC: LMP 06/30/2020 gives JOANN of 03/27/2021. US on 08/28/2020 at 10 weeks 2 days gives JOANN of 03/24/2021; consistent with dates. s/p COVID vaccinex2 07/03 and 10/31- Moderna O pos/ Rub imm Reviewed genetics. QUAD normal FAS at 20 weeks- 3VC EFW 21%ile CL 4.0 posterior Tdap: 01/12 COVID vaccine complete Influenza vaccine-given 03/04/21 Glucola- 135 Breast Pump Rx: 01/12 Early glucola 135 HSV: Denies. GBS at 36 weeks- due today MOD: Has decided she wants to proceed with repeat CS. BTL consents signed 01/27/21 (wants to hold off on BTL) Desires 03/20/21 CS Contraception: Unsure at present. Pap smear due in September 2021 Past Medical History: Reviewed and updated today: asthma Ruptured appendix. Childhood asthma, currently stable. Past Surgical History: Reviewed and updated today: C sections x1 2010 Appendectomy 2012 at approximately 35 weeks EGA via vertical midline abdominal incision. Exploratory laparotomy for ruptured appendectomy, also vertical midline incision. Both procedures in the [facility]. Family History Summary: Family History Reviewed: 08/06/2020 Family History of Diabetes for Mother - Entered On: 09/25/2018 Family History of Hypertension for Father - Entered On: 09/25/2018 Family History of Stroke/CVA for Father - Entered On: 09/25/2018 Social History Summary: Patient has never smoked. Patient has never used smokeless tobacco. 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 PE: VS: 118/84 88 98% GEN: pale appearing, rigors, unable to sit upright 2/2 pain HEAD: NCAT EYES: No scleral icterus or conjunctival injection CV: RR RESP: normal effort ABD: Diffuse TTP, increased at fundus PSYCH: appropriate affect NEURO: alert and oriented EXT: WWP EFM 140 mod camryn 15x15 accels no decels TOCO: Q2-4 min A/P: 30 yo at 36+6 wga with hx of prior and unclear uterine incision here in early labor with increasing abdominal tenderness Concern for uterine rupture given presentation Proceed to OR for urgent CS Consent obtained for CS and possible wound revision Cefazolin 2g IV OCTOR T&C for 2 units PRBCs In-patient care Meds/Allgy - Home Medications Home Medications: Ambulatory Orders Medication Instructions Recorded Confirmed Benzonatate [Tessalon Perle] 100 mg PO TID PRN #30 capsule 08/28/18 Doxycycline Hyclate 100 mg PO BID #20 capsule 08/28/18 Acetaminophen 650 mg PO Q6HR #30 tablet 01/14/19 Ibuprofen [Motrin] 600 mg PO Q6H PRN #30 tablet 01/14/19 Benzonatate [Tessalon Perle] 100 - 200 mg PO TID PRN #30 capsule 06/04/19 - Allergies Allergies/Adverse Reactions: Allergies Allergy/AdvReac Type Severity Reaction Status Date / Time No Known Drug Allergies Allergy Verified 06/04/19 10:14 Physical - Abdominal Exam Vital Signs: Temp Pulse Resp BP Pulse Ox 97.7 F 88 18 118/84 H 99 03/04/21 21:54 03/04/21 21:54 03/04/21 21:54 03/04/21 21:54 03/04/21 21:54
--- NOTE | 2021-03-05 00:19 | ANESTHESIA ---
Pre-Anesthesia VS, & Labs - Diagnosis Labor, previous c/s - Procedure repeat c/s Vital Signs: Temp Pulse Resp BP Pulse Ox 36.5 C 88 18 118/84 H 99 03/04/21 21:54 03/04/21 21:54 03/04/21 21:54 03/04/21 21:54 03/04/21 21:54 Height: 4 ft 11 in Weight (kg): 63.049 kg Body Mass Index: 28.0 BMI Classification: Overweight - NPO Last Food Intake: 1899 - Is Patient ?: Yes Home Medications and Allergies PNV, Famotidine prn Allergies/Adverse Reactions: Allergies Allergy/AdvReac Type Severity Reaction Status Date / Time No Known Drug Allergies Allergy Verified 06/04/19 10:14 Anes History & Medical History - Anesthetic History Anesthesia Complications: reports: No previous complications - Medical History Cardiovascular: reports: None Pulmonary: reports: None Gastrointestinal: reports: None Urinary: reports: None Neuro: reports: None Musculoskeletal: reports: None Endocrine/Autoimmune: reports: None Blood Disorders: reports: None Skin: reports: None Smoking Status: Never smoker Psychosocial: reports: No issues indicated History of Cancer?: No - Surgical History General: reports: Appendectomy Gynecologic: reports: section Exam General: Alert, Oriented x3, Cooperative, No acute distress Dental: WNL Mouth Openin Fingerbreadth Neck Mobility: Normal Mallampati classification: III Thyromental Distance: 4-6 cm Mental/Cognitive Status: Alert/Oriented X3, Normal for patient Plan Anesthesia Type: Spinal Consent for Procedure(s) Verified and Reviewed: Yes Code Status: Attempt Resuscitation ASA classification: 2-Mild systemic disease Is this case an emergency?: Yes
[2021-03-05] MEDS: LACTATED RINGERS 1,000 ML IV SCH ×3 (00:20→14:32)
[2021-03-05] MEDS ORDERED: CITRIC ACID/SODIUM CITRATE 15 ML UDC PO ONE (00:22)
[2021-03-05] MEDS ORDERED: OXYTOCIN 10 UNIT/ML VIAL IM PRN (00:28)
[2021-03-05] MEDS ORDERED: SODIUM CHLORIDE FLUSH 0.9% 10 ML SYRINGE IVP PRN ×2 (00:28→03:49)
[2021-03-05] MEDS ORDERED: OXYTOCIN/SODIUM CHLORIDE 500 ML IV PRN ×2 (00:28→03:49)
[2021-03-05] MEDS ORDERED: CARBOPROST TROMETHAMINE 250 MCG/ML AMP IM PRN (00:28)
[2021-03-05] MEDS ORDERED: TRANEXAMIC ACID IN NACL 1,000 MG/100 ML BAG IV PRN (00:28)
[2021-03-05] MEDS ORDERED: METHYLERGONOVINE 0.2 MG/ML VIAL IM PRN (00:28)
[2021-03-05] MEDS ORDERED: miSOPROStoL 200 MCG TABLET BC PRN (00:28)
[2021-03-05] MEDS ORDERED: LIDOCAINE-MPF 1% 30 ML VIAL ID PRN (00:28)
[2021-03-05] MEDS ORDERED: ceFAZolin 2 GM in SODIUM CHLORIDE 0.9% 100ML 100 ML IV ONE (00:28)
[2021-03-05] MEDS ORDERED: miSOPROStoL 200 MCG TABLET ONE (00:32)
[2021-03-05] MEDS ORDERED: METHYLERGONOVINE 0.2 MG/ML VIAL ONE (00:33)
[2021-03-05] MEDS ORDERED: CARBOPROST TROMETHAMINE 250 MCG/ML AMP IM ONE (00:33)
[2021-03-05] MEDS ORDERED: MORPHINE PF 5 MG/10 ML VIAL ONE (00:35)
[2021-03-05] MEDS ORDERED: fentaNYL 100 MCG/2 ML VIAL ONE (00:35)
[2021-03-05] MEDS ORDERED: PHENYLEPHRINE 10 MG/ML VIAL ONE (00:44)
[2021-03-05 00:53] LABS: BASOPHILS % (AUTO) 0.2 %; EOSINOPHILS # (AUTO) 0.1 10^3/uL (0.0-0.7); EOSINOPHILS % (AUTO) 0.5 %; HCT - HEMATOCRIT 39.7 % (37.0-47.0); HGB - HEMOGLOBIN 13.4 g/dL (12.0-16.0); LYMPHOCYTES # (AUTO) 1.9 10^3/uL (1.5-3.5); MEAN CORPUSCULAR HEMOGLOBIN 28.8 pg (27.0-31.0); MEAN CORPUSCULAR HGB CONC 33.8 g/dL (32.0-36.0); MEAN CORPUSCULAR VOLUME 85.2 fL (81.0-99.0); MEAN PLATELET VOLUME 9.8 fL (7.9-10.8); MONOCYTES % (AUTO) 6.2 %; NEUTROPHILS # (AUTO) 13.7 10^3/uL (1.5-6.6); NEUTROPHILS % (AUTO) 81.6 %; PLT - PLATELET COUNT 283 10^3/uL (130-450); RED BLOOD COUNT 4.66 10^6/uL (4.20-5.40); RED CELL DISTRIBUTION WIDTH 13.5 % (12.0-15.0); WHITE BLOOD COUNT 16.8 x10^3/uL (4.8-10.8)
[2021-03-05] MEDS ORDERED: LACTATED RINGERS 1,000 ML IV SCH ×3 (01:00→04:00)
[2021-03-05] MEDS ORDERED: SODIUM CHLORIDE FLUSH 0.9% 10 ML SYRINGE IVP SCH ×2 (01:00→09:00)
[2021-03-05] MEDS ORDERED: ACETAMINOPHEN 325 MG TABLET PO SCH (01:00)
[2021-03-05] MEDS ORDERED: ONDANSETRON 4 MG/2 ML VIAL ONE (01:14)
[2021-03-05] MEDS ORDERED: fentaNYL 100 MCG/2 ML VIAL IT ONE (01:19)
[2021-03-05] MEDS ORDERED: MORPHINE PF 5 MG/10 ML VIAL IT ONE (01:19)
[2021-03-05] MEDS ORDERED: ceFAZolin 1 GM VIAL ONE (01:28)
[2021-03-05] MEDS ORDERED: KETOROLAC 30 MG/ML VIAL ONE (02:43)
[2021-03-05] MEDS ORDERED: LIDOCAINE 2%-EPI 1:100000 20 ML MDV ONE (02:47)
[2021-03-05] MEDS ORDERED: BUPIVACAINE 0.25% PF 30 ML VIAL ONE (02:47)
[2021-03-05] MEDS ORDERED: MORPHINE 2 MG/ML CARPUJECT IVP PRN (02:55)
[2021-03-05] MEDS ORDERED: NALOXONE 0.4 MG/ML VIAL IVP PRN ×2 (02:55)
[2021-03-05] MEDS ORDERED: NALBUPHINE 10 MG/ML AMP IVP PRN (02:55)
[2021-03-05] MEDS ORDERED: fentaNYL 100 MCG/2 ML VIAL IVP PRN (02:55)
[2021-03-05] MEDS ORDERED: HYDROmorphone 0.5 MG/0.5 ML SYRINGE IVP PRN (02:55)
[2021-03-05] MEDS ORDERED: ONDANSETRON 4 MG/2 ML VIAL IVP PRN ×2 (02:55)
[2021-03-05] MEDS ORDERED: ATROPINE ABBOJECT 1 MG/10 ML SYRINGE IVP PRN (02:55)
[2021-03-05] MEDS ORDERED: BUPIVACAINE 0.25% PF 30 ML VIAL SUBQ ONE (03:28)
[2021-03-05] MEDS ORDERED: ONDANSETRON ODT 4 MG TABLET TL PRN (03:49)
[2021-03-05] MEDS ORDERED: oxyCODONE 5 MG TABLET PO PRN (03:49)
[2021-03-05] MEDS ORDERED: KETOROLAC 30 MG/ML VIAL IVP SCH (04:00)
--- NOTE | 2021-03-05 04:01 | OPERATIVE REPORT ---
Operative Report - General Admit Date: 03/05/21 Procedure Date: 03/05/21 Planned Procedure: Repeat low transverse Wound revision Pre-Op Diagnosis: IUP at 36+6 wga, hx of prior , early labor, severe abd pain Procedure Performed: Repeat low transverse Lysis of adhesions Wound revision Post Op Diagnosis: same and delivery of late , bowel adhesions, wound revision - Procedure Note Primary Surgeon: Ainsley Cantrell MD Secondary Surgeon: RAUL Irene CNM Anesthesia Provider: Coty Oconnell CRNA Anesthesia Technique: Spinal Pathology: Placenta for routine discard IV Fluids (mL): 1,000 Estimated Blood Loss (mL): 500 Urine Output (mL): 100 Indications: Patient was seen in clinic today. She reported have crmaping pelvic pain over the prior 24 hours. She presented to L&D this evening rating pain 5/10. Contractions were Q4 minutes. She was given an IV fluid bolus and observed over an hour. Contractions slowed but pain has increased to 8/10. Patient is having emesis and rigors. Unable to sit upright 2/2 pain. No bleeding. No LOF. No change in SVE over 1 hour. 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 Patient has a vertical abdominal incision with thick scarring, desires revision. Has signed [facility] tubal consents, declines tubal at present. Desires wound revision if time allows. Findings: Bowel adherent across the top of the uterine fundus and stretched to thinning. Heart shaped uterine cavity. Normal appearing tubes and ovaries. Female infant in vertex presentation with weight and Apgars pending. Complications: None - Other Other Information/Narrative: Risks benefits and alternatives of the procedure were discussed. Written informed consent was obtained. Patient was taken to the operating room where spinal anesthesia was placed and found to be adequate. She was prepped and draped in the usual sterile fashion in the dorsal supine position with a leftward tilt. Cortez catheter was in place. SCDs were in place and activated. Cefazolin 2 g IV was given as a preoperative antibiotic. Preoperative timeout was performed. A Pfannenstiel incision was made in the skin with a scalpel and carried through the underlying layer of fascia in a combination of sharp and blunt dissection. The fascia was incised in the midline, and the incision was extended laterally with the Graves scissors. The superior aspect of the fascial incision was grasped with the Carlos clamps, elevated, and the underlying rectus muscles were dissected off bluntly and sharply using the Graves scissors. Attention was then turned to the inferior aspect of the incision which in a similar fashion was grasped, tented up with Carlos clamps, and the underlying rectus muscles dissected off bluntly and sharply using Graves scissors. The rectus muscles were then in the midline. The peritoneum was identified, tented up, and entered bluntly. The peritoneal incision was extended superiorly and inferiorly with good visualization of the bladder. The bladder that blade was then inserted. A bladder flap was not created. The lower uterine segment of the uterus was identified, and incised in a transverse fashion with a scalpel. The uterus was entered bluntly. The uterine incision was extended in a craniocaudal fashion by manual stretch. The bladder blade was removed. The infant was delivered from from vertex position. Baby was wrapped in a warm sterile towel. Delayed cord clamping was performed. After cessation of pulsations, the cord was clamped x2 and cut. The infant was handed off to the waiting pediatricians. The placenta was removed with manual expression. The uterus was exteriorized and bowel adhesions limited uterine mobility were noted carmen adherent across the uterine fundus. In areas where the adhesions were filmy and there was adequate distance from the bowel, the adhesions were transected with Bovie cautery, taking care to protect the nearby bowel tissue. There was one area where a diverticulum stretched closed to the uterine tissue and cautery was deemed unsafe for use. The adhesive tissue clear of bowel wwas clamped x2 and transected with Metzenbaum scissors. A tie on a passer was used to ligate the bowel end of the adhesion x2. The General Surgeon television installer helper, Dr. Pastor, was contacted and images of the bowel s were provided for visualization. No futher surgical intervention was indicated per Dr. Pastor. The uterus cavity was then cleared of all clots and debris via manual swipe using Ray-Ele x2. The uterine incision was then repaired in a running locked fashion using 0 Vicryl suture. The incisoin was reinforced with a running imbricating layer again using 0-Vicryl suture. Excellent hemostasis was obtained. The uterus was returned to the abdomen. The gutters were cleared of all clots and debris. The pelvis was irrigated with sloppy wet lap sponges. The uterine defect was well visualized in normal anatomic position it was noted again to be hemostatic. The peritoneum was then reapproximated with 2-0 Vicryl in a running fashion. The rectus muscles were then reapproximated using interrupted [id number] sutures using 2-0 Chromic. Good hemostasis was noted. The fascia was then closed using 0 Vicryl in a running fashion starting from the left lateral edge to the midline. A second suture was used to close the fascia in a running fashion starting from the right lateral edge and meeting in the midline, again using 0-Vicryl. The subcutaneous tissue was then irrigated and closed using 2-0 chromic in a running subcutaneous suture. A total of 15 cc of 0.25bupivicaine was injected into the suture line. Revision of the vertical wound was then performed by sharply dissecting out the scar tissue with a scalpel. The underlying tissue was clears of scar tissue as much as possible to provider vascularized adipose tissue to optimize healing. The subcutaneous tissue was then irrigated and closed using 2-0 chromic in a running subcutaneous suture. The skin of the Pfannenstiel incision was closed in a running subcuticular suture using 4-0 Monocryl. The vertical midline incision was also then closed with a running subcuticular suture using 4-0 Monocryl. Steri-Strips were applied to reinforce the incsion and dressing was applied. Procedure was well-tolerated and without complication. Sponge lap and needle counts were correct x2. Patient was taken to recovery room in stable condition. Luciana Limon CNM, assisted with retraction, delivery of the infant, and suturing.
[2021-03-05] MEDS ORDERED: LACTATED RINGERS 1,000 ML IV ONE (04:21)
[2021-03-05] MEDS: ACETAMINOPHEN 500 MG TABLET PO SCH ×3 (05:45→21:50)
[2021-03-05 07:10] LABS: BASOPHILS % (AUTO) 0.3 %; EOSINOPHILS % (AUTO) 0.1 %; HCT - HEMATOCRIT 33.8 % (37.0-47.0); HGB - HEMOGLOBIN 11.3 g/dL (12.0-16.0); LYMPHOCYTES # (AUTO) 1.5 10^3/uL (1.5-3.5); LYMPHOCYTES % (AUTO) 9.2 %; MEAN CORPUSCULAR HEMOGLOBIN 28.9 pg (27.0-31.0); MEAN CORPUSCULAR HGB CONC 33.4 g/dL (32.0-36.0); MEAN CORPUSCULAR VOLUME 86.4 fL (81.0-99.0); MONOCYTES # (AUTO) 1.1 10^3/uL (0.0-1.0); MONOCYTES % (AUTO) 7.1 %; NEUTROPHILS # (AUTO) 13.2 10^3/uL (1.5-6.6); NEUTROPHILS % (AUTO) 82.9 %; PLT - PLATELET COUNT 251 10^3/uL (130-450); RED BLOOD COUNT 3.91 10^6/uL (4.20-5.40); RED CELL DISTRIBUTION WIDTH 13.5 % (12.0-15.0)
[2021-03-05] MEDS: SERTRALINE 50 MG TABLET PO SCH ×2 (08:39→08:42)
[2021-03-05] MEDS: DOCUSATE SODIUM 100 MG CAPSULE PO SCH (08:39)
[2021-03-05] MEDS: SIMETHICONE CHEW 80 MG TABLET PO PRN (08:39)
[2021-03-05] MEDS: KETOROLAC 15 MG/ML VIAL IVP SCH ×3 (08:57→21:50)
--- NOTE | 2021-03-05 10:37 | ANESTHESIA POST OP EVALUATION ---
Anesthesia Post Eval - Post Anesthesia Eval Vitals: Last Vital Signs Temp 36.6 C 03/05/21 07:32 Pulse 82 03/05/21 10:00 Resp 20 03/05/21 10:00 BP 97/53 L 03/05/21 07:44 Pulse Ox 99 03/05/21 10:00 CV Function Including HR & BP: Stable Pain Control: Satisfactory Nausea & Vomiting: Negative Mental Status: Baseline Respiratory Status: Airway Patent Hydration Status: Satisfactory Anesthesia Complications: None
--- NOTE | 2021-03-05 15:23 | PROVIDER PROGRESS NOTE ---
Subjective - Prog Note Date Prog Note Date: 03/05/21 Prog Note Time: 15:21 - Subjective Subjective: Patient is POD#0 s/p rLTCS with KAYA Doing well. UOP has been low and patient is undergoing IVF bolus Reports pain has been well managed BF going well Not yet ambulating. GEN: NAD RESP: nl effort ABD: soft and appropriately tender NOBLES in place with clear yellow urine accumulating Cont with routine postop care Objective - Vital Signs/Intake & Output Vital Signs: Vital Signs x48h Temp Pulse Pulse Pulse Resp BP Pulse Ox 03/05/21 15:19 68 15 100 03/05/21 15:00 86 16 100 03/05/21 13:04 90 20 100 03/05/21 12:09 75 20 104/67 99 03/05/21 11:00 81 16 98 03/05/21 10:00 82 20 99 03/05/21 09:10 85 16 99 03/05/21 08:30 81 16 100 03/05/21 07:44 93 15 97/53 L 100 03/05/21 07:32 97.9 F 03/05/21 07:30 109/69 03/05/21 07:26 95 15 99 Intake & Output: Intake & Output 03/02/21 03/03/21 03/04/21 03/05/21 23:59 23:59 23:59 23:59 Intake Total 2375 Output Total 360 Balance 2014 - Lab Results Fish Bones: 03/05/21 06:42 Other Labs: Lab Results x24hrs 03/05/21 03/05/21 03/05/21 Range/Units 06:42 00:47 00:47 WBC 16.0 H 16.8 H (4.8-10.8) x10^3/uL RBC 3.91 L 4.66 (4.20-5.40) 10^6/uL Hgb 11.3 L 13.4 (12.0-16.0) g/dL Hct 33.8 L 39.7 (37.0-47.0) % MCV 86.4 85.2 (81.0-99.0) fL MCH 28.9 28.8 (27.0-31.0) pg MCHC 33.4 33.8 (32.0-36.0) g/dL RDW 13.5 13.5 (12.0-15.0) % Plt Count 251 283 (130-450) 10^3/uL MPV 10.0 9.8 (7.9-10.8) fL Neut # (Auto) 13.2 H 13.7 H (1.5-6.6) 10^3/uL Lymph # (Auto) 1.5 1.9 (1.5-3.5) 10^3/uL [place] # (Auto) 1.1 H 1.0 (0.0-1.0) 10^3/uL Eos # (Auto) 0.0 0.1 (0.0-0.7) 10^3/uL Baso # (Auto) 0.0 0.0 (0.0-0.1) 10^3/uL Absolute Nucleated RBC 0.00 0.00 x10^3/uL Nucleated RBC % 0.0 0.0 /100WBC Blood Type O POSITIVE Antibody Screen NEGATIVE Crossmatch IS Only See Detail
[2021-03-06 06:09] LABS: BASOPHILS # (AUTO) 0.1 10^3/uL (0.0-0.1); BASOPHILS % (AUTO) 0.4 %; EOSINOPHILS # (AUTO) 0.2 10^3/uL (0.0-0.7); EOSINOPHILS % (AUTO) 1.1 %; HCT - HEMATOCRIT 31.4 % (37.0-47.0); HGB - HEMOGLOBIN 10.5 g/dL (12.0-16.0); LYMPHOCYTES # (AUTO) 1.9 10^3/uL (1.5-3.5); LYMPHOCYTES % (AUTO) 11.1 %; MEAN CORPUSCULAR HEMOGLOBIN 29.2 pg (27.0-31.0); MEAN CORPUSCULAR HGB CONC 33.4 g/dL (32.0-36.0); MEAN CORPUSCULAR VOLUME 87.2 fL (81.0-99.0); MEAN PLATELET VOLUME 9.8 fL (7.9-10.8); NEUTROPHILS # (AUTO) 13.7 10^3/uL (1.5-6.6); NEUTROPHILS % (AUTO) 80.8 %; PLT - PLATELET COUNT 227 10^3/uL (130-450); RED CELL DISTRIBUTION WIDTH 13.5 % (12.0-15.0)
[2021-03-06] MEDS: DOCUSATE SODIUM 100 MG CAPSULE PO SCH (08:42)
[2021-03-06] MEDS: SIMETHICONE CHEW 80 MG TABLET PO PRN (08:43)
[2021-03-06] MEDS: SERTRALINE 50 MG TABLET PO SCH (08:43)
[2021-03-06] MEDS: IBUPROFEN 600 MG TABLET PO SCH ×2 (12:30→18:20)
--- NOTE | 2021-03-06 14:14 | PROVIDER PROGRESS NOTE ---
Subjective - Prog Note Date Prog Note Date: 03/06/21 Prog Note Time: 14:02 - Subjective Subjective: Patient is doing well. She is up and ambulating. Tolerating po. Pain is well managed and rate 2/10. WBC higher than expected at 17 but is without symptoms and afebrile. BF going well. Voiding. Objective - Vital Signs/Intake & Output Reviewed Vital Signs: Yes Vital Signs: Vital Signs x48h Temp Pulse Resp BP Pulse Ox 03/06/21 12:24 97.9 F 74 16 105/62 100 03/06/21 08:00 97.9 F 74 16 115/67 100 Intake & Output: Intake & Output 03/03/21 03/04/21 03/05/21 03/06/21 23:59 23:59 23:59 23:59 Intake Total 2875 Output Total 2035 450 Balance 840 -450 - Objective General Appearance: positive: No acute distress Respiratory: positive: No respiratory distress, Breath sounds nml Cardiovascular: positive: Regular rate & rhythm Abdomen: positive: Other (Appropriately tender. Soft. Dressing CDI) Skin: positive: Color nml - Lab Results Fish Bones: 03/06/21 05:55 Other Labs: Lab Results x24hrs 03/06/21 Range/Units 05:55 WBC 17.0 H (4.8-10.8) x10^3/uL RBC 3.60 L (4.20-5.40) 10^6/uL Hgb 10.5 L (12.0-16.0) g/dL Hct 31.4 L (37.0-47.0) % MCV 87.2 (81.0-99.0) fL MCH 29.2 (27.0-31.0) pg MCHC 33.4 (32.0-36.0) g/dL RDW 13.5 (12.0-15.0) % Plt Count 227 (130-450) 10^3/uL MPV 9.8 (7.9-10.8) fL Neut # (Auto) 13.7 H (1.5-6.6) 10^3/uL Lymph # (Auto) 1.9 (1.5-3.5) 10^3/uL [place] # (Auto) 1.0 (0.0-1.0) 10^3/uL Eos # (Auto) 0.2 (0.0-0.7) 10^3/uL Baso # (Auto) 0.1 (0.0-0.1) 10^3/uL Absolute Nucleated RBC 0.00 x10^3/uL Nucleated RBC % 0.0 /100WBC Assessment/Plan - Problem List (1) delivery delivered Impression: POD#1 s/p LTCS and wound revision. Doing well Routine post op care Anticipate DC home tomorrow
[2021-03-06] MEDS: ACETAMINOPHEN 500 MG TABLET PO SCH ×2 (14:24→23:06)
[2021-03-07] MEDS: IBUPROFEN 600 MG TABLET PO SCH ×2 (00:35→06:46)
[2021-03-07 06:40] LABS: BASOPHILS # (AUTO) 0.1 10^3/uL (0.0-0.1); BASOPHILS % (AUTO) 0.6 %; EOSINOPHILS # (AUTO) 0.4 10^3/uL (0.0-0.7); HCT - HEMATOCRIT 31.1 % (37.0-47.0); HGB - HEMOGLOBIN 10.4 g/dL (12.0-16.0); LYMPHOCYTES # (AUTO) 2.1 10^3/uL (1.5-3.5); LYMPHOCYTES % (AUTO) 15.1 %; MEAN CORPUSCULAR HEMOGLOBIN 28.9 pg (27.0-31.0); MEAN CORPUSCULAR HGB CONC 33.4 g/dL (32.0-36.0); MEAN CORPUSCULAR VOLUME 86.4 fL (81.0-99.0); MEAN PLATELET VOLUME 9.5 fL (7.9-10.8); MONOCYTES # (AUTO) 0.9 10^3/uL (0.0-1.0); MONOCYTES % (AUTO) 6.2 %; NEUTROPHILS # (AUTO) 10.3 10^3/uL (1.5-6.6); NEUTROPHILS % (AUTO) 74.7 %; PLT - PLATELET COUNT 241 10^3/uL (130-450); RED CELL DISTRIBUTION WIDTH 13.5 % (12.0-15.0); WHITE BLOOD COUNT 13.8 x10^3/uL (4.8-10.8)
[2021-03-07] MEDS: ACETAMINOPHEN 500 MG TABLET PO SCH (07:13)
--- NOTE | 2021-03-07 07:43 | DISCHARGE SUMMARY ---
"Discharge Summary Admit Date: 03/05/21 Discharge Date: 03/07/21 Discharging Provider: Óscar Condition at Discharge: Good Discharge Disposition: 01 Home, Self Care - DIAGNOSES Admission Diagnoses: IUP at 36+6 wga Early labor Hx of prior Severe abdominal pain not consistent with labor in setting of unclear uterine incision Discharge Diagnoses with Status of Each Condition: Same and adhesions of bowel to uterine fundus; suspected mechanical bowel obstruction relieved with delivery. Delivery of late gestation - HPI History of Present Illness: Patient is a 30 yo admitted at 36+6 wga here with contractions and abdomen painful to touch. Patient was seen in clinic on day of admission. She having cramping pelvic pain over the prior 24 hours. She presented to L&D rating pain 5/10. Contractions were Q4 minutes. She was given an IV fluid bolus and observed over an hour. Contractions slowed but pain increased to 8/10. Patient was having emesis and rigors. Unable to sit upright 2/2 pain. No bleeding. No LOF. No change in SVE over 1 hour. 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 Patient has a vertical abdominal incision. Has signed [facility] tubal consents, declined tubal at admit. Desired wound revision if time allows. - CONSULTS | PROCEDURES Procedures: Repeat low transverse Lysis of adhesions Wound revision - HOSPITAL COURSE Hospital Course: Patient was admitted for urgent unscheduled repeat low transverse and wound revision. Intraoperative findings showed bowel adherent across the top of the uterine fundus and stretched to thinning. Likely resulting in mechanical small bowel obstruction. Other findings showed a heart shaped uterine cavity. Normal appearing tubes and ovaries. Female in vertex presentation with weighing 2710g and with Apgars of 8/8. Postoperative course was uncomplicated. She had a slight iincrease in white blood cell count to 17 but remained asymptomatic and without fever or pain. Repeat WBC on POD#2 showed trend to normal with WBC 13.8. By POD#2, patient and baby were meeting goals for discharge. Routine discharge instructions given. O positive and Rubella immune. - ALLERGIES Allergies/Adverse Reactions: Allergies Allergy/AdvReac Type Severity Reaction Status Date / Time No Known Drug Allergies Allergy Verified 06/04/19 10:14 - MEDICATIONS Home Medications: Ambulatory Orders Medication Instructions Recorded Confirmed Benzonatate [Tessalon Perle] 100 mg PO TID PRN #30 capsule 08/28/18 RX: Doxycycline Hyclate 100 mg PO BID #20 capsule 08/28/18 Ibuprofen [Motrin] 600 mg PO Q6H PRN #30 tablet 01/14/19 RX: Acetaminophen 650 mg PO Q6HR #30 tablet 01/14/19 Benzonatate [Tessalon Perle] 100 - 200 mg PO TID PRN #30 capsule 06/04/19 RX: Acetaminophen [Acetaminophen 1,000 mg PO Q8H PRN #60 tablet 03/06/21 Extra Strength] RX: Docusate Sodium 100Mg Capsule 100 - 200 mg PO BID PRN #60 cap 03/06/21 [Colace 100Mg Capsule] RX: Ibuprofen [Motrin] 600 mg PO Q6H PRN #60 tab 03/06/21 RX: oxyCODONE [Roxicodone] 2.5 - 5 mg PO Q4H PRN #24 tablet 03/06/21 - PHYSICAL EXAM AT DISCHARGE General Appearance: positive: No acute distress Neck: positive: Nml inspection Respiratory: positive: No respiratory distress Cardiovascular: positive: Other (RR) Peripheral Pulses: positive: 2+ Abdomen: positive: Non-tender, No distention, Other (Soft NT/ND/FF below umbi. Dressing removed. Some serosang staining, otherwise CDI) Skin: positive: Color nml Extremities: positive: Non-tender, No pedal edema Neurologic/Psychiatric: positive: Oriented x3 - LABS Result Diagrams: 03/07/21 06:17 - FOLLOW UP Follow Up: [address] Cantrell - TIME SPENT Time Spent in Discharge (Minutes): 30"
[2021-03-07] MEDS: SERTRALINE 50 MG TABLET PO SCH (08:19)
[2021-03-07] MEDS: DOCUSATE SODIUM 100 MG CAPSULE PO SCH (08:19)
--- NOTE | 2021-03-07 08:52 | Discharge Plan ---
Discharge Plan Problem Reviewed?: Yes Disposition: Home, Self Care Condition: Good Prescriptions: Acetaminophen [Acetaminophen Extra Strength] 1,000 mg PO Q8H PRN #60 tablet PRN Reason: Pain Docusate Sodium 100Mg Capsule [Colace 100Mg Capsule] 100 - 200 mg PO BID PRN #60 cap PRN Reason: Constipation Ibuprofen [Motrin] 600 mg PO Q6H PRN #60 tab PRN Reason: Pain oxyCODONE [Roxicodone] 2.5 - 5 mg PO Q4H PRN #24 tablet PRN Reason: Severe Pain Plan of Treatment: Ibuprofen 600 mg by mouth every 6 hours as needed for pain Acetaminophen 500-1000 mg by mouth every 8 hours as needed for pain Docusate 100-200 mg by mouth twice a day as needed for constipation Oxycodone 2.5-5 mg by mouth every 4 hours as needed for pain Additional Instructions or Follow Up instructions: Nothing in the vagina for 6 weeks: No intercourse, tampons, douching Call for: -Fever greater than 100.5 -Pain that does not improve with pain medication -Heavy bleeding in which you are soaking a pad an hour for 2 hours in a row -Incision becomes hot, hard, red, starts to open, or leaks foul smelling fluid No lifting more than 10# for 4 [address] while on narcotics Ok to shower. Let water run over the incision. Do not soap, scrub, or apply lotion. Pat dry with a clean towel or amberly a chair spring assembler. The surgical stickers will start to peel off and you can remove them when they do. Otherwise, the provider will remove them at your one week follow-up appointment. OK to use an unscented sanitary napkin or clean washcloth to keep the incision dry if the belly folds over the incision. No Smoking: If you smoke, Please STOP! Call for help. Follow-up with: Gail Orellana DO [Primary Care Provider] - Eboni Cantrell MD [Provider Admit Priv/Credential] -
[2021-03-07 09:32] VITALS: BP 110/66
== END 2021-03-07 16:10 | disposition home or self-care (01) | DRG 787 ==
LOC: WFO 21:19 → FBP 21:22 → WFO 03-05 00:27 → FBP 03-05 00:28
PROVIDERS: ADMIT Obstetrics & Gynecology; ATTEND Obstetrics & Gynecology
PROC: 0UN90ZZ Release Uterus, Open Approach (ICD-10-PCS; 2021-03-05)
PROC: 0HB7XZZ Excision of Abdomen Skin, External Approach (ICD-10-PCS; 2021-03-05)
PROC: 10D00Z1 Extraction of Products of Conception, Low, Open Approach (ICD-10-PCS; principal; 2021-03-05 01:00)
DX: O60.14X0 Preterm labor third trimester with preterm delivery third trimester, not applicable or unspecified (principal); K56.50 Intestinal adhesions [bands], unspecified as to partial versus complete obstruction; O99.62 Diseases of the digestive system complicating childbirth; Z3A.36 36 weeks gestation of pregnancy; Z37.0 Single live birth; O34.211 Maternal care for low transverse scar from previous cesarean delivery; N85.8 Other specified noninflammatory disorders of uterus
CPT/HCPCS: 36415; 85025; 86850; 86900; 86901; 86920; A9270; J2210; J2274; J7120

== ENCOUNTER 2021-04-27 13:57 | Outpatient (CLI) | payer OTHER ==
--- NOTE | 2021-04-28 08:19 | Ultrasound Report ---
LIMITED ULTRASOUND OF RIGHT BREAST- - RIGHT BREAST: 04/27/2021 CLINICAL: Palpable right breast lump. Now gone. No prior exams were available for comparison. Color flow ultrasound of the right breast retroareolar was performed. Guadalupe scale images of the real- time examination were reviewed. No ultrasound abnormality was identified in the area of prior palpab le abnormality which the patient states has now resolved. IMPRESSION: NEGATIVE There is no sonographic evidence of malignancy. There is no abnormality seen in the right breast to correspond with the area of clinical concern in t he sub-areolar depth, however, clinical followup is recommended. This exam was interpreted at Station ID: [id number]. Electronically Signed By: Garland Perez acr/:04/27/2021 15:05:28 Ultrasound BI-RADS: 1 Negative BI-RADS CATEGORY: (1) - 1 Unspecified - other recall n/a LATERALITY: (B)
== END 2021-04-27 13:58 | disposition home or self-care (01) ==
LOC: DI 13:57
PROVIDERS: ATTEND Obstetrics & Gynecology
DX: O91.23 Nonpurulent mastitis associated with lactation (principal)

== ENCOUNTER 2021-08-12 11:14 | Outpatient (CLI) | payer OTHER ==
--- NOTE | 2021-08-12 16:08 | XRAY Report ---
PROCEDURE: Chest 2 View X-Ray INDICATIONS: HX OF POSITIVE PPD TECHNIQUE: 2 view(s) of the chest. COMPARISON: 06/04/2019 FINDINGS: Surgical changes and devices: None. Lungs and pleura: No pleural effusions or pneumothorax. Lungs demonstrate slight coarsening of inter stitial markings and perihilar and right infrahilar regions. No dense consolidations or masses. There is bronchial wall thickening in the right lung. Mediastinum: Mediastinal contours are normal. Heart size is normal. Bones and chest wall: No suspicious bony abnormalities. Soft tissues appear unremarkable. IMPRESSION: 1. Slight coarsening of interstitial markings and mild bronchial wall thickening. Findings are fairly similar compared to the prior study and may reflect underlying asthma. If there is concern for inter stitial lung disease, CT of the chest is recommended. Reviewed by: Luanne Goode MD on 08/12/2021 4:07 PM PST Approved by: Luanne Goode MD on 08/12/2021 4:07 PM PST Station ID: [id number]
== END 2021-08-12 11:15 | disposition home or self-care (01) ==
LOC: DI.N 11:14
PROVIDERS: ATTEND Family Medicine
DX: Z87.898 Personal history of other specified conditions (principal)

== ENCOUNTER 2022-04-03 15:31 | Outpatient (CLI) | payer OTHER | END 2022-04-03 23:59 | disposition home or self-care (01) | LOC: LAB.N 15:31 | PROVIDERS: ATTEND Family Medicine | DX: R30.0 Dysuria (principal) | CPT/HCPCS: 87086; 87181 ==

== ENCOUNTER 2023-09-13 15:30 | Outpatient (CLI) | payer OTHER | END 2023-09-13 15:45 | disposition home or self-care (01) | LOC: LAB.N 15:30 | PROVIDERS: ATTEND Registered Nurse | DX: R30.0 Dysuria (principal) | CPT/HCPCS: 87086 ==

== ENCOUNTER 2023-11-22 11:25 | Outpatient (CLI) | payer OTHER ==
[2023-11-22 18:03] LABS: BASOPHILS % (AUTO) 0.5 %; EOSINOPHILS # (AUTO) 0.2 10^3/uL (0.0-0.7); EOSINOPHILS % (AUTO) 1.7 %; HCT - HEMATOCRIT 44.3 % (37.0-47.0); HGB - HEMOGLOBIN 14.2 g/dL (12.0-16.0); LYMPHOCYTES # (AUTO) 2.7 10^3/uL (1.5-3.5); MEAN CORPUSCULAR HEMOGLOBIN 27.7 pg (27.0-31.0); MEAN CORPUSCULAR HGB CONC 32.1 g/dL (32.0-36.0); MEAN CORPUSCULAR VOLUME 86.4 fL (81.0-99.0); MONOCYTES # (AUTO) 0.4 10^3/uL (0.0-1.0); MONOCYTES % (AUTO) 4.4 %; NEUTROPHILS # (AUTO) 5.4 10^3/uL (1.5-6.6); NEUTROPHILS % (AUTO) 62.2 %; PLT - PLATELET COUNT 357 10^3/uL (130-450); RED BLOOD COUNT 5.13 10^6/uL (4.20-5.40); RED CELL DISTRIBUTION WIDTH 12.7 % (12.0-15.0); WHITE BLOOD COUNT 8.6 x10^3/uL (4.8-10.8)
[2023-11-22 18:23] LABS: ALBUMIN 4.7 g/dL (3.2-5.5); ALBUMIN/GLOBULIN RATIO 1.5 (1.0-2.2); ALKALINE PHOSPHATASE 49 IU/L (42-121); ALT ALANINE AMINOTRANSFERASE 12 IU/L (10-60); AST ASPARTATE AMINOTRANSFERASE 13 IU/L (10-42); BILIRUBIN,TOTAL 0.6 mg/dL (0.2-1.0); BUN - BLOOD UREA NITROGEN 15 mg/dL (6-20); CALCIUM 9.5 mg/dL (8.5-10.3); CARBON DIOXIDE - CO2 27 mmol/L (21-32); CHLORIDE 103 mmol/L (101-111); CHOL/HDL RATIO 3.8 (<4.4); CHOLESTEROL 176 mg/dL; CREATININE 0.6 mg/dL (0.6-1.3); GFR - MDRD 114 (>89); GLUCOSE 80 mg/dL (74-104); HDL CHOLESTEROL 46 mg/dL; LDL CHOLESTEROL,CALCULATED 110 mg/dL; LDL/HDL RATIO 2.4 (<4.4); POTASSIUM 3.6 mmol/L (3.5-4.5); SODIUM 136 mmol/L (135-145); TOTAL PROTEIN 7.9 g/dL (6.4-8.9); TRIGLYCERIDES 100 mg/dL (48-352); VLDL CHOLESTEROL 20 mg/dL
[2023-11-22 18:29] LABS: THYROID STIMULATING HORMONE 1.29 uIU/mL (0.34-5.60)
[2023-11-22 20:00] LABS: ESTIMATED AVERAGE GLUCOSE 111 mg/dL (70-100); HEMOGLOBIN A1c% 5.5 % (4.27-6.07)
== END 2023-11-22 11:26 | disposition home or self-care (01) ==
LOC: LAB.N 11:25
DX: Z00.00 Encounter for general adult medical examination without abnormal findings (principal)
CPT/HCPCS: 36415; 80050; 80061; 83036; 83721